=== PATIENT | female | born 2000 | race Two or more races ===

== ENCOUNTER 2020-06-28 20:52 | Emergency (ER) | payer SELFPAY ==
--- NOTE | 2020-06-28 21:24 | EDM.PDOC ---
ED HPI GENERAL MEDICAL PROBLEM - General Chief Complaint: Skin Complaint Stated Complaint: ARM RASH/INFECTION Time Seen by Provider: 06/28/20 21:01 Source of Information: Reports: Patient, RN Notes Reviewed History Limitations: Reports: No Limitations - History of Present Illness INITIAL COMMENTS - FREE TEXT/NARRATIVE: Patient is a 20-year-old female presenting to the emergency department with complaints of itchy, scattered rash in various areas around her body over the course of the last month. She states that the itching initially began in her left inner arm overlying the area of her control implant. She occasionally gets small individual itchy areas scattered throughout her body. She states that she lives with her and daughter. She often sleeps with her daughter and she does not have any of these types of lesions so she does not think they are bites. She has not been taking any suvt-noh-rdwkdct medications for treatment. - Related Data Allergies Allergy/AdvReac Type Severity Reaction Status Date / Time No Known Allergies Allergy Verified 06/28/20 21:02 Home Meds: Home Meds Etonogestrel [Nexplanon] 68 mg IDERM ASDIRECTED 06/28/20 [History] Past Medical History - Past Health History Medical/Surgical History: Denies Medical/Surgical History Social & Family History - Tobacco Use Tobacco Use Status *Q: Never Tobacco User Second Hand Smoke Exposure: No - Caffeine Use Caffeine Use: Reports: None - Recreational Drug Use Recreational Drug Use: No ED ROS GENERAL - Review of Systems Review Of Systems: See Below Constitutional: Reports: No Symptoms. Denies: Fever, Chills, Weakness HEENT: Reports: No Symptoms Respiratory: Reports: No Symptoms Cardiovascular: Reports: No Symptoms Endocrine: Reports: No Symptoms GI/Abdominal: Reports: No Symptoms : Reports: No Symptoms Musculoskeletal: Reports: No Symptoms Skin: Reports: Rash Neurological: Reports: No Symptoms Psychiatric: Reports: No Symptoms Hematologic/Lymphatic: Reports: No Symptoms Immunologic: Reports: No Symptoms ED EXAM, SKIN/RASH Exam: See Below General Appearance: Alert, WD/WN, No Apparent Distress Respiratory/Chest: No Respiratory Distress, Lungs Clear, Normal Breath Sounds, No Accessory Muscle Use, Chest Non-Tender Cardiovascular: Normal Peripheral Pulses, Regular Rate, Rhythm, No Edema, No Gallop, No JVD, No Murmur, No Rub Skin: Rash (Rash to the medial aspect of the left upper arm. There is an area of slight lichenification overlying this area. Few, very small patches of redness scattered throughout the body.) Course - Vital Signs Last Recorded V/S: Last Vital Signs Temp 98.0 F 06/28/20 21:00 Pulse 79 06/28/20 21:00 Resp 17 06/28/20 21:00 BP 96/72 06/28/20 21:00 Pulse Ox 99 06/28/20 21:00 - Re-Assessments/Exams Free Text/Narrative Re-Assessment/Exam: Patient is a 20-year-old female presenting to the emergency part with complaints of a 1 month history of itching and rash which originated to the inner aspect of her left upper arm overlying the area of her control implant. She states the rash has been present consistently consistently over that area. She does occasionally develop small patches of itchy rash elsewhere on her body as w ell. On exam, there is a slightly reddened rash area overlying the control implant on her left upper arm. There is an area of lichenification of the skin suggestive that there is been chronic irritation and scratching in that area for an extended period of time. She has a few very small patches of redness scattered on her body which have the appearance of bites, however she states that no one else in her household has these. I am suspicious that she could be having allergic reaction to her control implant. Discussed with her that I would recommend that she begin taking an allergy medication such as Annette daily. I would like her to contact an [employer] provider on Wednesday morning to discuss possibly having the implant removed to see if that alleviates her symptoms. Discussed that she can also speak with them about alternative control options. She is in agreement with this plan. Discharge instructions as documented. Departure - Departure Time of Disposition: 21:30 Disposition: Home, Self-Care 01 Condition: Good Clinical Impression: Allergic dermatitis - Discharge Information *PRESCRIPTION DRUG MONITORING PROGRAM REVIEWED*: No *COPY OF PRESCRIPTION DRUG MONITORING REPORT IN PATIENT INESSA: No Instructions: Rash, Adult Referrals: PCP,None [Primary Care Provider] - Additional Instructions: You were seen in the emergency department today for a itchy, reddened rash particular to the inner aspect of your right upper arm but also scattered in small areas throughout your body. As we discussed, this rash has the appearance of either an allergy or possibly bug bites. You stated that nobody else in your house has these lesions. Given that the rash is more concentrated in the area overlying your control implant, it is possible that you are having an allergic response to the control device. Recommend that she begin taking in aiir-lcg-vcqekra antihistamine such as Annette daily. This should alleviate the itching. Recommend that you contact one of the [facility] [employer] providers on Wednesday morning to schedule an appointment to discuss possibly having the implant re moved and alternative control options. This is the only way to tell if this is causing the problem. You should experience any worsening symptoms, please not hesitate to return to the ER. Sepsis Event Note (ED) - Evaluation Sepsis Screening Result: No Definite Risk - Focused Exam Vital Signs: Vital Signs Temp Pulse Resp BP Pulse Ox 06/28/20 21:00 98.0 F 79 17 96/72 99
== END 2020-06-28 21:41 | disposition home or self-care (01) ==
LOC: JD.ED 20:52
DX: L23.9 Allergic contact dermatitis, unspecified cause (principal)
CPT/HCPCS: 99282

== ENCOUNTER 2020-07-01 13:51 | Emergency (ER) | payer SELFPAY ==
--- NOTE | 2020-07-01 14:55 | EDM.PDOC ---
ED HPI GENERAL MEDICAL PROBLEM - General Chief Complaint: Skin Complaint Stated Complaint: RASH AND BLEEDING NOT BETTER Time Seen by Provider: 07/01/20 14:50 Source of Information: Reports: Patient History Limitations: Reports: No Limitations - History of Present Illness INITIAL COMMENTS - FREE TEXT/NARRATIVE: Patient is a 20-year-old female presenting to the emergency department with complaints of rash. She was seen in this emergency department 2 days ago for the same complaint. At that time, she had significant redness and itching over her Nexplanon insertion site as well as a few scattered red itchy spots on her body. She was advised to start taking Annette. She states that she is taking Claritin and that she thinks the spots are worsening. They continue to itch. She does have an appointment tomorrow to have her Nexplanon removed. Denies any shortness of breath or chest tightness. Generalized Pain Score (Numeric/FACES): 8 - Related Data Allergies Allergy/AdvReac Type Severity Reaction Status Date / Time No Known Allergies Allergy Verified 07/01/20 14:15 Home Meds: Home Meds Etonogestrel [Nexplanon] 68 mg IDERM ASDIRECTED 06/28/20 [History] predniSONE [Prednisone] 20 mg PO ASDIRECTED #15 tablet 07/01/20 [Rx] Past Medical History - Past Health History Medical/Surgical History: Denies Medical/Surgical History Social & Family History - Family History Family Medical History: No Pertinent Family History - Tobacco Use Tobacco Use Status *Q: Never Tobacco User Second Hand Smoke Exposure: No - Caffeine Use Caffeine Use: Reports: None - Recreational Drug Use Recreational Drug Use: No ED ROS GENERAL - Review of Systems Review Of Systems: See Below Constitutional: Reports: No Symptoms HEENT: Reports: No Symptoms Respiratory: Reports: No Symptoms Cardiovascular: Reports: No Symptoms Endocrine: Reports: No Symptoms GI/Abdominal: Reports: No Symptoms : Reports: No Symptoms Musculoskeletal: Reports: No Symptoms Skin: Reports: Rash Neurological: Reports: No Symptoms Psychiatric: Reports: No Symptoms Hematologic/Lymphatic: Reports: No Symptoms Immunologic: Reports: No Symptoms ED EXAM, SKIN/RASH Exam: See Below General Appearance: Alert, WD/WN, No Apparent Distress Respiratory/Chest: No Respiratory Distress, Lungs Clear, Normal Breath Sounds, No Accessory Muscle Use, Chest Non-Tender Cardiovascular: Normal Peripheral Pulses, Regular Rate, Rhythm, No Edema, No Gallop, No JVD, No Murmur, No Rub Neurological: Alert, Oriented, CN II-XII Intact, Normal Cognition, Normal Gait, Normal Reflexes, No Motor/Sensory Deficits Psychiatric: Normal Affect, Normal Mood Skin: Other (Area of slight redness and lichenification over the internal aspect of her left upper arm near the insertion site of her Nexplanon. This appears to be improved since my previous exam. Few scattered 1 cm areas of redness and pruritus on the body.) Course - Vital Signs Last Recorded V/S: Last Vital Signs Temp 98.1 F 07/01/20 14:12 Pulse 82 07/01/20 14:12 Resp 19 07/01/20 14:12 BP 112/79 07/01/20 14:12 Pulse Ox 97 07/01/20 14:12 - Re-Assessments/Exams Free Text/Narrative Re-Assessment/Exam: Patient is a 20-year-old female presenting to the emergency department for reevaluation with regards to an itchy, generalized rash. She was seen in this ER 2 days ago advised to start taking zizy-ffs-zycbvls antihistamines. She states that she is taking Claritin but she feels like it is worsening. On exam, she has about five 1 cm itchy reddened areas scattered throughout her body. The rash and redness overlying her Nexplanon site has improved since my previous exam. Overall, I feel that her rash has improved, however she feels it is worsened. She continues to planes of itching. I will put her on a course of prednisone. Discussed the possibility of other allergens, however I feel that the Nexplanon is most likely since the rash was quite localized to that area when it initially began. She should keep her appointment tomorrow to have the Nexplanon removed. Discharge instructions as documented. Departure - Departure Time of Disposition: 15:01 Disposition: Home, Self-Care 01 Condition: Good Clinical Impression: Allergic dermatitis - Discharge Information *PRESCRIPTION DRUG MONITORING PROGRAM REVIEWED*: No *COPY OF PRESCRIPTION DRUG MONITORING REPORT IN PATIENT INESSA: No Prescriptions: predniSONE [Prednisone] 20 mg PO ASDIRECTED #15 tablet Referrals: PCP,None [Primary Care Provider] - Forms: ED Department Discharge Additional Instructions: You were seen in the emergency department for reevaluation of a generalized rash to your body with itching. As we discussed, this is likely allergic dermatitis. Since the rash began over your Nexplanon site, I feel this may be your allergen, however this is not a guarantee. You have been started on prednisone which is a steroid. This should help with your rash and itching. Recommend you keep your appointment as scheduled tomorrow to have the Nexplanon removed. Continue to take the vfmv-ykv-dnrujhn antihistamines in addition to the prednisone. Return to ER as needed. Sepsis Event Note (ED) - Evaluation Sepsis Screening Result: No Definite Risk - Focused Exam Vital Signs: Vital Signs Temp Pulse Resp BP Pulse Ox 07/01/20 14:12 98.1 F 82 19 112/79 97
== END 2020-07-01 15:07 | disposition home or self-care (01) ==
LOC: JD.ED 13:51
DX: L23.9 Allergic contact dermatitis, unspecified cause (principal)
CPT/HCPCS: 99282

== ENCOUNTER 2020-10-14 20:17 | Emergency (ER) | payer MEDICAID ==
--- NOTE | 2020-10-14 21:26 | EDM.PDOC ---
ED HPI GENERAL MEDICAL PROBLEM - General Chief Complaint: General Stated Complaint: HEADACHE Time Seen by Provider: 10/14/20 20:30 Source of Information: Reports: Patient History Limitations: Reports: No Limitations - History of Present Illness INITIAL COMMENTS - FREE TEXT/NARRATIVE: Ms. Alford is a very pleasant 20-year-old woman with no chronic medical problems, who now presents to the ED stating that she has had 3 days of a headache, cough, sore throat, chills without fever, generalized body aches, and loss of smell, then developed nausea today. No recent fever. No dyspnea, vomiting, or diarrhea. She states that she has not taken any maab-eyd-dedrbei or home remedies to try to treat any of her symptoms. No prior similar symptoms. Of note, the patient also brought her daughter to the ED to be evaluated, after she developed a fever of 101 degrees this morning. Her daughter's appetite was slightly diminished today, otherwise, her daughter has been completely asymptomatic. Here in the ED, the patient is found to be hemodynamically stable, afebrile, saturating 100% on room air. The patient states that she is on day 6 of with doxycycline, for treatment of chlamydia. Otherwise, prior to 10/11/2020, the patient denies having a recent fever, chills, sore throat, ear pain, nasal or sinus congestion, cough, dyspnea, chest pain, palpitations, nausea, vomiting, constipation, diarrhea, abdominal pain, urinary symptoms, recent weight gain or weight loss, recent bloody bowel movements or black bowel movements, recent joint aches, headaches, or rashes. The patient's PCP is Nell Chen NP. She is not sure if she received an influenza vaccine this season. - Related Data Allergies Allergy/AdvReac Type Severity Reaction Status Date / Time No Known Allergies Allergy Verified 10/14/20 20:37 Home Meds: Home Meds Doxycycline Monohydrate 100 mg PO BID 10/14/20 [History] Past Medical History - Past Health History Medical/Surgical History: Denies Medical/Surgical History Social & Family History - Tobacco Use Tobacco Use Status *Q: Never Tobacco User Second Hand Smoke Exposure: No - Caffeine Use Caffeine Use: Reports: None - Alcohol Use Alcohol Use History: Yes Alcohol Use Frequency: Socially - Recreational Drug Use Recreational Drug Use: Yes Drug Use in Last 12 Months: Yes Recreational Drug Type: Reports: Marijuana/Hashish (smokes on occasion, last around Aug 2020) - Living Situation & Occupation Living situation: Reports: Single, with Significant Other (Boyfriend), with Family (Daughter) Occupation: Employed ([employer]) ED ROS GENERAL - Review of Systems Review Of Systems: Comprehensive ROS is negative, except as noted in HPI. ED EXAM, GENERAL - Physical Exam Exam: See Below Exam Limited By: No Limitations General Appearance: Alert, No Apparent Distress, Thin Eye Exam: Bilateral Eye: EOMI, Normal Inspection Ears: Normal External Exam, Hearing Grossly Normal Nose: Normal Inspection Throat/Mouth: Normal Inspection, Normal Lips, Normal Teeth, Normal Gums, Normal Oropharynx, Normal Voice, No Airway Compromise Head: Atraumatic, Normocephalic Neck: Normal Inspection, Supple, Non-Tender, Full Range of Motion. No: Lymphadenopathy (L), Lymphadenopathy (R) Respiratory/Chest: No Respiratory Distress, Lungs Clear, Normal Breath Sounds, No Accessory Muscle Use. No: Decreased Breath Sounds, Crackles, Rhonchi, Wheezing, Stridor, Prolonged Expiration Cardiovascular: Normal Peripheral Pulses, Regular Rate, Rhythm, No Edema, No Gallop, No JVD, No Murmur, No Rub Peripheral Pulses: 3+: Radial (L), Radial (R) GI/Abdominal: Normal Bowel Sounds, Soft, Non-Tender, No Organomegaly, No Distention, No Abnormal Bruit, No Mass Back Exam: Normal Inspection, Full Range of Motion, NT Extremities: Normal Inspection, Normal Range of Motion, No Pedal Edema, Normal Capillary Refill Neurological: Alert, Oriented, Normal Cognition, No Motor/Sensory Deficits Psychiatric: Normal Affect Skin Exam: Warm, Dry, Intact, Normal Color, No Rash Course - Vital Signs Last Recorded V/S: Last Vital Signs Temp 36.4 C 10/14/20 20:26 Pulse 90 10/14/20 22:50 Resp 16 10/14/20 22:50 BP 107/78 10/14/20 22:50 Pulse Ox 98 10/14/20 22:50 - Orders/Labs/Meds Labs: Laboratory Tests 10/14/20 10/14/20 10/14/20 Range/Units 21:15 21:24 21:32 WBC 2.85 L (3.98-10.04) K/mm3 RBC 4.86 (3.98-5.22) M/mm3 Hgb 13.2 (11.2-15.7) gm/dl Hct 41.5 (34.1-44.9) % MCV 85.4 (79.4-94.8) fl MCH 27.2 (25.6-32.2) pg MCHC 31.8 L (32.2-35.5) g/dl RDW Std Deviation 45.3 (36.4-46.3) fL Plt Count 197 (182-369) K/mm3 MPV 9.8 (9.4-12.3) fl Neutrophils % (Manual) 26 L (40-60) % Band Neutrophils % 2 (0-10) % Lymphocytes % (Manual) 63 H (20-40) % Atypical Lymphs % 0 % Monocytes % (Manual) 9 (2-10) % Eosinophils % (Manual) 0 L (0.7-5.8) % Basophils % (Manual) 0 L (0.1-1.2) Platelet Estimate Adequate RBC Morph Comment Normal Sodium (136-145) mEq/L Potassium (3.5-5.1) mEq/L Chloride (98-107) mEq/L Carbon Dioxide (21-32) mEq/L Anion Gap (5-15) BUN (7-18) mg/dL Creatinine (0.55-1.02) mg/dL Est Cr Clr Drug Dosing mL/min Estimated GFR (MDRD) (>60) mL/min BUN/Creatinine Ratio (14-18) Glucose (74-106) mg/dL Calcium (8.5-10.1) mg/dL Total Bilirubin (0.2-1.0) mg/dL AST (15-37) U/L ALT (14-59) U/L Alkaline Phosphatase (46-116) U/L C-Reactive Protein (<1.0) mg/dL Total Protein (6.4-8.2) g/dl Albumin (3.4-5.0) g/dl Globulin gm/dL Albumin/Globulin Ratio (1-2) Influenza Type A RNA Negative (NEGATIVE) Influenza Type B RNA Negative (NEGATIVE) SARS-CoV-2 RNA (REGI) Positive H (NEGATIVE) Group A Strep (PCR) Not detected (NOT DETECT) 10/14/20 Range/Units 21:32 WBC (3.98-10.04) K/mm3 RBC (3.98-5.22) M/mm3 Hgb (11.2-15.7) gm/dl Hct (34.1-44.9) % MCV (79.4-94.8) fl MCH (25.6-32.2) pg MCHC (32.2-35.5) g/dl RDW Std Deviation (36.4-46.3) fL Plt Count (182-369) K/mm3 MPV (9.4-12.3) fl Neutrophils % (Manual) (40-60) % Band Neutrophils % (0-10) % Lymphocytes % (Manual) (20-40) % Atypical Lymphs % % Monocytes % (Manual) (2-10) % Eosinophils % (Manual) (0.7-5.8) % Basophils % (Manual) (0.1-1.2) Platelet Estimate RBC Morph Comment Sodium 142 (136-145) mEq/L Potassium 3.4 L (3.5-5.1) mEq/L Chloride 104 (98-107) mEq/L Carbon Dioxide 29 (21-32) mEq/L Anion Gap 12.4 (5-15) BUN 11 (7-18) mg/dL Creatinine 0.7 (0.55-1.02) mg/dL Est Cr Clr Drug Dosing 98.32 mL/min Estimated GFR (MDRD) > 60 (>60) mL/min BUN/Creatinine Ratio 15.7 (14-18) Glucose 105 (74-106) mg/dL Calcium 8.5 (8.5-10.1) mg/dL Total Bilirubin 0.2 (0.2-1.0) mg/dL AST 17 (15-37) U/L ALT 17 (14-59) U/L Alkaline Phosphatase 65 (46-116) U/L C-Reactive Protein <0.2 (<1.0) mg/dL Total Protein 7.2 (6.4-8.2) g/dl Albumin 3.7 (3.4-5.0) g/dl Globulin 3.5 gm/dL Albumin/Globulin Ratio 1.1 (1-2) Influenza Type A RNA (NEGATIVE) Influenza Type B RNA (NEGATIVE) SARS-CoV-2 RNA (REGI) (NEGATIVE) Group A Strep (PCR) (NOT DETECT) - Re-Assessments/Exams Free Text/Narrative Re-Assessment/Exam: 10/14/20 21:22 As above, the patient reports having a headache, cough, sore throat, chills without fever, body aches, and loss of smell since Wednesday, and nausea today. She is afebrile, with an oxygen saturation of 100%, and her physical exam is completely unremarkable, but her symptoms are concerning for COVID-19, therefore I have ordered a work-up that includes several blood tests, a group A strep test by PCR, a swab for the SARS-CoV-2 virus and influenza virus, and a chest x-ray, to evaluate. 10/14/20 22:29 Two-view chest radiograph appears to be grossly normal. The cardiac silhouette is within normal limits. No pulmonary vascular congestion. No pleural effusions. No focal infiltrate. No pneumothorax. Formal read per the Radiologist pending. The patient's CBC is remarkable for leukopenia of 2.85, but is otherwise unremarkable. Her CMP is remarkable for very slight hypokalemia of 3.4, but is otherwise unremarkable. Her CRP is undetectably low. Her group A strep test is negative. Her swab for the SARS-CoV-2 virus has returned positive. Her swab for the influenza viruses has returned negative. Because the patient has no risk factors for complications from COVID-19, she does not qualify for treatment with monoclonal antibodies. Because she is not hypoxemic, dexamethasone is not indicated. 10/14/20 22:40 Test results discussed with the patient. I explained that patients with COVID- 19, on average, shed the virus for approximately 10 days, and during that time they are infectious. I recommended that she strictly quarantine for the next 10 days. That includes her boyfriend, who lives in the same household, as well as her daughter, who also tested positive for the SARS-CoV-2 virus. I recommended that they then get tested after 10 days, and not meet with others outside the home until they test negative. Departure - Departure Time of Disposition: 22:41 Disposition: Home, Self-Care 01 Condition: Good Clinical Impression: COVID-19 - Discharge Information *PRESCRIPTION DRUG MONITORING PROGRAM REVIEWED*: Not Applicable *COPY OF PRESCRIPTION DRUG MONITORING REPORT IN PATIENT INESSA: Not Applicable Instructions: COVID-19 Referrals: Nell Chen NP [Primary Care Provider] - Forms: ED Department Discharge Additional Instructions: You were seen in the emergency room for 3 days of a headache, cough, sore throat, chills, body aches, loss of smell, along with nausea, today. Work-up in the ER included several blood tests, a rapid strep test, swabs for the SARS-CoV-2 virus and influenza viruses, and a chest x-ray. The swab for the SARS-CoV-2 virus returned positive, indicating that you have COVID-19. The remainder of your work-up was entirely unremarkable. As discussed, people with COVID-19, on average, shed the virus, and are therefore infectious, for approximately 10 days. During this time, you, your boyfriend, and daughter will need to strictly quarantine, so as you do not spread the virus to others. After 10 days, we recommend that all 3 of you get retested for COVID-19. None of you should interact with anyone outside of the home until you all test negative. If any problems develop, please follow-up with your PCP, Nell Chen NP, or return to the for reevaluation. Sepsis Event Note (ED) - Evaluation Sepsis Screening Result: No Definite Risk
[2020-10-14 22:10] LABS: CORONAVIRUS COVID-19 NAA POSITIVE (NEGATIVE)
--- NOTE | 2020-10-15 07:08 | CR ---
Chest: 2 views of the chest were obtained. Comparison: No previous chest imaging is available. Heart size and mediastinum are normal. Lungs are clear with no acute parenchymal change. Bony structures are unremarkable. Impression: 1. Nothing acute is seen on 2 view chest x-ray. Diagnostic code #1
== END 2020-10-14 22:50 | disposition home or self-care (01) ==
LOC: JD.ED 20:17
DX: U07.1 COVID-19 (principal)
CPT/HCPCS: 0240U; 36415; 71046; 80053; 85007; 85027; 86140; 87651; 99283